=== PATIENT | female | born 1990 | race Caucasian/White ===

== ENCOUNTER 2017-08-04 16:07 | Emergency (ER) | payer OTHER ==
[~2017-08-04 16:07] MED LIST: CLARITIN DPS10 MG PO; MOTRIN-DPS800 MG PO; NIPPLECREAM TP; PRENATAL VIT1 TAB PO; TYLENOL #3 DPS1 TAB PO
--- NOTE | 2017-08-07 09:47 | ER ---
ADMIT: 08/04/2017 RM/LOC: ER [facility] MR#: [id number] [id number] [address]NA [address] [place] [address] Emergency Room Report SEX: F AGE: 26 : 1990 DATE: 08/04/2017 ADDENDUM: A 26-year-old white female coming in with dizzy. Initially, she had a little tachycardic. She has no fever. Her lab was negative. She was not . She does not have hypertension. Since we gave her Valium and Zofran because she was a little nauseated, I gave her a liter of fluid, she was feeling better. Discharged her home with instructions to see her primary care doctor this week to have the blood pressure rechecked. CONDITION ON DISCHARGE: Improved. Kyle Dyer MD/ katty JOB #: [id number] CC: Kyle Dyer MD, Attending Physician Shlomo Pena DO, Family Physician
== END 2017-08-04 19:50 | disposition home or self-care (01) ==
LOC: ER 16:07
DX: R21 Rash and other nonspecific skin eruption (principal); R42 Dizziness and giddiness; R03.0 Elevated blood-pressure reading, without diagnosis of hypertension; Z91.018 Allergy to other foods